=== PATIENT | female | born 1980 | race African-American/Black ===

== ENCOUNTER 2019-05-08 08:54 | Outpatient (CLI) | payer OTHER, SELFPAY | END 2019-05-08 08:55 | disposition home or self-care (01) | PROVIDERS: Visit Provider Nurse Practitioner Gerontology | DX: J45.909 Unspecified asthma, uncomplicated (principal) | CPT/HCPCS: 36415; 82785; 86003 ==

== ENCOUNTER 2019-08-03 14:13 | Outpatient (CLI) | payer OTHER, SELFPAY ==
[2019-08-03 15:18] LABS: Basophils Percent Auto 0.7 % (0.2-1.2); Eosinophils Percent Auto 0.7 % (0-4.4); Hematocrit 39.3 % (37.0-47.0); Hemoglobin 12.9 g/dL (12.0-15.0); Immature Granulocyte Absolute 0.03 K/mm3 (0.00-0.031); Immature Granulocyte Percent A 0.5 % (0-0.5); Immature Platelet Fraction Pct 10.3 % (0.9-11.2); Lymphocytes Absolute Auto 2.62 K/mm3 (0.9-3.2); Lymphocytes Percent Auto 43.2 % (18.3-44.2); Mean Corpuscular HGB Conc 32.8 g/dl (32-36); Mean Corpuscular Hemoglobin 29.7 pg (26-34); Mean Corpuscular Volume 90.6 fl (80-100); Monocytes Absolute Auto 0.6 K/mm3 (0.1-0.6); Monocytes Percent Auto 10.2 % (2.6-8.5); Neutrophils Absolute Auto 2.7 K/mm3 (1.3-6.7); Neutrophils Percent Auto 44.7 % (45.5-73.1); Platelet Count Result 200 k/mm3 (150-375); Red Blood Count 4.34 M/mm3 (4.2-5.4); Red Cell Distribution Width 12.9 % (11.5-14.5); White Blood Count 6.1 K/mm3 (4.5-10.0)
[2019-08-07 11:47] LABS: Vitamin B1 11 nmol/L (8-30)
== END 2019-08-03 14:14 | disposition home or self-care (01) ==
LOC: ANHLAB 14:20
DX: E66.01 Morbid (severe) obesity due to excess calories (principal); K90.9 Intestinal malabsorption, unspecified
CPT/HCPCS: 36415; 84425; 85025; 85055

== ENCOUNTER 2019-08-05 13:00 | Outpatient (CLI) | payer OTHER, SELFPAY ==
[2019-08-05 13:35] LABS: Alanine Aminotransferase 17 U/L (4-35); Albumin Level 4.2 g/dL (3.5-5.1); Alkaline Phosphatase 72 U/L (38-126); Aspartate Amino Transferase 21 U/L (14-36); Bilirubin,Total 0.7 mg/dL (0.2-1.3); Blood Urea Nitrogen 10 mg/dL (7-17); Calcium 8.8 mg/dL (8.4-10.2); Carbon Dioxide 26 mmol/L (22-30); Chloride 105 mmol/L (98-107); Cholesterol 146 mg/dL (0-200); Estimated Glomerular Filt Rate > 60; Glucose 86 mg/dL (65-105); HDL Direct 43 mg/dL; Magnesium 2.2 mg/dL (1.6-2.3); Phosphorus 3.4 mg/dL (2.5-4.5); Potassium 4.2 mmol/L (3.4-5.0); Sodium 137 mmol/L (137-145); Triglycerides 66 mg/dL (<150)
[2019-08-05 13:46] LABS: LDL Cholesterol Direct 79 mg/dL
[2019-08-05 14:04] LABS: Iron 120 ug/dL (37-170)
[2019-08-05 14:08] LABS: Parathyroid Intact 18.2 pg/mL (7.5-53.5)
[2019-08-05 14:13] LABS: Percent Iron Saturation 40 % (20-50)
[2019-08-05 14:39] LABS: Vitamin D 25 Hydroxy 40.7 ng/mL
[2019-08-05 14:44] LABS: Folic Acid > 20.0 ng/mL (2.76->20)
== END 2019-08-05 13:01 | disposition home or self-care (01) ==
DX: E66.01 Morbid (severe) obesity due to excess calories (principal); K90.9 Intestinal malabsorption, unspecified
CPT/HCPCS: 36415; 80053; 80061; 82306; 82607; 82728; 82746; 83540; 83550; 83735; 83970; 84100

== ENCOUNTER 2019-08-28 07:44 | Outpatient (CLI) | payer OTHER, SELFPAY ==
--- NOTE | 2019-08-28 | ECHO_ITS ---
Patient Info Name: Renee Healy Age: 39 years : 1980 Gender: Female Ht: 63 in Wt: 275 lbs BSA: 2.43 m2 BP: 132 / 86 mmHg Technical Quality: Good Exam Date: 08/28/2019 8:36 AM Exam Location: [facility] Pulmonary Patient Status: Outpatient Admit Date: 08/28/2019 Staff Ordering Physician: Hira, Merle FIERRO Aircraft Armorer: Gabriel Carlos, CHRIS, RT Attending Provider: HiraMerle APRN Exam Type: CA echo doppler color flow Study Info Indications R06.02 - Shortness of breath Complete two-dimensional, color flow and Doppler transthoracic echocardiogram is performed. Summary 1. Left ventricular chamber dimension is normal. 2. Left ventricular systolic function is normal, estimated at 60-65%. 3. The left ventricular diastolic function is normal. 4. E/e' 6 is minimally elevated. 5. Global longitudinal strain is mildly abnormal at -16.6%. 6. There is trace tricuspid valve regurgitation. Left Ventricle E/e' 6 is minimally elevated. Global longitudinal strain is mildly abnormal at -16.6%. Left ventricular chamber dimension is normal. Left ventricular systolic function is normal, estimated at 60-65%. The left ventricular diastolic function is normal. Right Ventricle Right ventricular chamber dimension is normal. Right ventricular systolic function is normal. Left Atria Left atrial chamber dimension is normal. Right Atria Right atrial chamber dimension is normal. Aortic Valve The aortic valve is trileaflet. There is no aortic valve stenosis. There is no aortic valve regurgitation. Pulmonic Valve There is no pulmonic regurgitation. Mitral Valve There is no mitral valve stenosis. There is no mitral valve regurgitation. Tricuspid Valve There is trace tricuspid valve regurgitation. RVSP is not calculated due to an inadequate TR jet. Pericardium/Pleural There is no pericardial effusion. Inferior Vena Cava Normal inferior vena cava with >50% collapse upon inspiration consistent with normal right atrial pressure, 5 mmHg. Aorta The aortic root size at the sinus of Valsalva is normal. Left Ventricular Outflow Tract Name Value Normal LVOT 2D LVOT Diameter 2.1 cm LVOT Doppler LVOT Peak Gradient 3 mmHg LVOT Mean Gradient 2 mmHg LVOT VTI 20 cm LVOT VTI/AV VTI Ratio 0.8 LVOT Stroke Volume 71 ml LVOT CO 4.4 l/min LVOT CI 2.0 l/min/m2 Mitral Valve Name Value Normal MV Doppler MV Decel [place] 274 cm/s2 MV PHT 73 ms MV Area (PHT) 3.0 cm2 4.0-5.0 MV Diastolic Function
== END 2019-08-28 07:45 | disposition home or self-care (01) ==
LOC: ANHCARD 07:47
PROVIDERS: Visit Provider Nurse Practitioner Gerontology
DX: I27.20 Pulmonary hypertension, unspecified (principal)
CPT/HCPCS: 93306

== ENCOUNTER 2021-08-16 12:27 | Outpatient (CLI) | payer OTHER, SELFPAY ==
[2021-08-16 13:20] LABS: Hematocrit 35.4 % (37.0-47.0); Hemoglobin 11.5 g/dL (12.0-15.0)
== END 2021-08-16 12:28 | disposition home or self-care (01) ==
PROVIDERS: Anesthesiology; Visit Provider Obstetrics & Gynecology Gynecology
DX: R58 Hemorrhage, not elsewhere classified (principal)
CPT/HCPCS: 36415; 85014; 85018

== ENCOUNTER 2021-08-21 00:31 | Day surgery (SDC) | payer OTHER, SELFPAY ==
[2021-08-15 14:03] VITALS: BMI 44.4
--- NOTE | 2021-08-15 14:18 | PC.NURSE ---
-Report to the Outpatient Waiting Room, entrance under the green pavilion located off [facility], at time 0700 on date 08/21/21. OR Time: 0900. - You and your visitor will be asked a series of questions to screen for COVID 19 for your protection. - Only one visitor is allowed at this time. - The patient visitor is requested to leave or wait in car when not with patient. - A mask is required within the hospital. -Patients may have clear liquids (water, carbonated beverages, clear teas, apple juice) until 3 hours prior to surgery with a maximum of 20 ounces. - No food from midnight until time of surgery. Take the following medications with a SIP of water the morning of surgery: Buspirone, Hydroxyzine HCL, Sertraline, Amitriptyline and if needed, may take Rizatriptan and also, may use inhalers if needed. Medications to discontinue per physician: Calcium citrate, Vitamin D2, and Multivitamin. Date to take last dose 3 days prior to surgery. Please no make-up, nail icelandic, hairspray, perfume, deodorant, or body powder the day of surgery. No jewelry (including any body piercings) or valuables the day of surgery, leave them at home. Please take a shower or bath the night before, or the morning of, surgery with an antibacterial soap. Wear comfortable, loose fitting clothing. - Jewelry must be removed prior to entering the operating room. Rings and piercings that are not removed may be cut off. - The hospital will not accept responsibility for valuables. - Please leave all valuables, including medications, at home the day of surgery. If you are going home after surgery, a licensed hammer driver must drive you home. - NO public transportation without another adult. - We recommend that an adult stay with you for 24 hours following discharge. - We also recommend that you do not drive, make important decision, drink alcoholic beverages, or take any drugs that were not prescribed by your health care provider for at least 24 hours after your discharge time. Follow any additional instructions given to you from your surgeon. If you or anyone in your household have experienced Covid symptoms in the past week, please notify your surgeon or the nurse liaison at the phone number below for possible testing. Telephone instructions given to patient and asked if any additional questions and then verbalized understanding. -Patient advised to call surgeon office or pre surgery nurse liaison [phone] if any additional questions.
--- NOTE | 2021-08-21 07:33 | WPDHPUPDATE1 ---
History and Physical Update Update Date/Time: 08/21/21 07:33 History and Physical has been reviewed, including an updated exam of the patient. There are NO changes in the patient's condition. Risks, benefits, and alternatives have been discussed and questions answered. Patient agrees to proceed with procedure.
--- NOTE | 2021-08-21 07:33 | PM.HPGS ---
History of Present Illness History of Present Illness Consent: Risks, benefits, and alternatives have been discussed and questions answered. Patient agrees to proceed with procedure. Chief complaint: abn uterine bleeding Narrative: Renee Healy is a 41 year old female with heavy and irregular cycles for the past 8 months. Pelvic ultrasound reveals a normal-appearing uterus. Patient is slightly anemic with a hemoglobin of 11. Recommend to proceed with D&C hysteroscopy for further evaluation. Risks of infection, bleeding, perforation, and fluid imbalance were reviewed. Patient voiced understanding and agrees to proceed. Possible pathology was also discussed. Review of Systems Review of Systems: not repeated day of surgery; patient states no changes in status PMFSH Past Medical History Medical History (Updated 08/21/21 @ 08:00 by Lorraine Saha MD) Anxiety Asthma Depression Migraine Surgical History Surgical History (Updated 08/21/21 @ 07:59 by Lorraine Saha MD) History of bilateral tubal ligation 2012 History of X3 History of reversal of tubal ligation 2016 Status post carpal tunnel release of both wrists Status post laparoscopic cholecystectomy Status post LEEP (loop electrosurgical excision procedure) of cervix 2007 Status post sleeve gastrectomy Performed in 2016 with a revision in 2019 Status post tonsillectomy Social History Social History Smoking status: Former smoker Tobacco type: e-cigarettes/vaping Smoking end date: 07/15/21 Alcohol intake: current Drinks per week: 1 Substance use: never Living arrangements: with family Spiritual care concerns: No Meds Home Medications and Allergies Home Medications Medication Instructions Recorded Confirmed Type Lactobacills gasseri-Bifidobac 1 cap PO DAILY 08/15/21 08/15/21 History bifidum,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[employer]) albuterol sulfate 90 mcg/actuation 2 puff inhalation Q4-6H PRN 08/15/21 08/15/21 History aerosol inhaler WHEEZING amitriptyline 25 mg tablet 25 mg PO DAILY 08/15/21 08/15/21 History buspirone 30 mg tablet 30 mg PO BID 08/15/21 08/15/21 History calcium citrate 150 mg capsule 150 mg PO DAILY 08/15/21 08/15/21 History cetirizine 10 mg tablet (Zyrtec) 10 mg PO DAILY 08/15/21 08/15/21 History cholestyramine (with sugar) 4 gram 1 ea PO DAILY PRN Diarrhea 08/15/21 08/15/21 History powder for susp in a packet clobetasol 0.05 % scalp solution 1 ml topical 3XW 08/15/21 08/15/21 History cyclobenzaprine 5 mg tablet 5 mg PO DAILY PRN Muscle Spasm 08/15/21 08/15/21 History diclofenac sodium 1 % topical gel 1 ea topical BID PRN MUSCLE PAIN 08/15/21 08/15/21 History dicyclomine 10 mg capsule 10 mg PO BID PRN Abdominal 08/15/21 08/15/21 History Discomfort ergocalciferol (vitamin D2) 1,250 1,250 mcg PO DAILY 08/15/21 08/15/21 History mcg (50,000 unit) capsule (Vitamin D2) fluticasone propionate 110 2 puff inhalation Q4-6H PRN 08/15/21 08/15/21 History mcg/actuation HFA aerosol inhaler Wheezing (Flovent HFA) hydrocortisone 2.5 % topical cream 1 applic topical 3XW 08/15/21 08/15/21 History hydroxychloroquine 200 mg tablet 200 mg PO BID 08/15/21 08/15/21 History hydroxyzine HCl 25 mg tablet 25 mg PO TID PRN Anxiety 08/15/21 08/15/21 History ketoconazole 2 % shampoo 1 ea topical 3XW 08/15/21 08/15/21 History linaclotide 145 mcg capsule 145 mcg PO DAILY 08/15/21 08/15/21 History (Linzess) meclizine 25 mg tablet 25 mg PO DAILY 08/15/21 08/15/21 History montelukast 10 mg tablet 10 mg PO DAILY 08/15/21 08/15/21 History (Singulair) multivitamin with minerals-folic 1 tablet PO DAILY 08/15/21 08/15/21 History acid 0.4 mg tablet pantoprazole 40 mg tablet,delayed 40 mg PO DAILY 08/15/21 08/15/21 History release phentermine 7.5 mg-topiramate ER 1 cap PO DAILY 08/15/21 08/15/21 History 46 mg capsule,ext.release 24hr mphase (Qsymia) rizatriptan
[2021-08-21] MEDS: ACETAMINOPHEN 500 MG TABLET 1000 MG PO (07:40)
--- NOTE | 2021-08-21 07:57 | WPDANESEPPF ---
Anes - Initial Pre Proc Eval Procedure: Operation Date: 08/21/21 09:00 Proposed Procedures p Hysteroscopy, Dilation and Curettage - Lorraine Saha MD Date/Time: 08/21/21 07:57 Surgeon: Lorraine Saha MD Pre Op Diagnosis: abn uterine bleeding Patient Data Age: 41 Gender: F Height: 1.6 m Weight: 113.85 kg Allergies Allergy/AdvReac Type Severity Reaction Status Date / Time iodine Allergy Severe DIFFICULTY Verified 08/21/21 07:35 BREATHING/HIVES/SWELLING morphine AdvReac Severe Itching Verified 08/21/21 07:35 adhesive tape AdvReac Intermediate REDNESS/SWE Verified 08/21/21 07:35 LLING/ITCHI NG Home Medications Medication Instructions Recorded Confirmed Type Lactobacills gasseri-Bifidobac 1 cap PO DAILY 08/15/21 08/15/21 History bifidum,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[employer]) albuterol sulfate 90 mcg/actuation 2 puff inhalation Q4-6H PRN 08/15/21 08/15/21 History aerosol inhaler WHEEZING amitriptyline 25 mg tablet 25 mg PO DAILY 08/15/21 08/15/21 History buspirone 30 mg tablet 30 mg PO BID 08/15/21 08/15/21 History calcium citrate 150 mg capsule 150 mg PO DAILY 08/15/21 08/15/21 History cetirizine 10 mg tablet (Zyrtec) 10 mg PO DAILY 08/15/21 08/15/21 History cholestyramine (with sugar) 4 gram 1 ea PO DAILY PRN Diarrhea 08/15/21 08/15/21 History powder for susp in a packet clobetasol 0.05 % scalp solution 1 ml topical 3XW 08/15/21 08/15/21 History cyclobenzaprine 5 mg tablet 5 mg PO DAILY PRN Muscle Spasm 08/15/21 08/15/21 History diclofenac sodium 1 % topical gel 1 ea topical BID PRN MUSCLE PAIN 08/15/21 08/15/21 History dicyclomine 10 mg capsule 10 mg PO BID PRN Abdominal 08/15/21 08/15/21 History Discomfort ergocalciferol (vitamin D2) 1,250 1,250 mcg PO DAILY 08/15/21 08/15/21 History mcg (50,000 unit) capsule (Vitamin D2) fluticasone propionate 110 2 puff inhalation Q4-6H PRN 08/15/21 08/15/21 History mcg/actuation HFA aerosol inhaler Wheezing (Flovent HFA) hydrocortisone 2.5 % topical cream 1 applic topical 3XW 08/15/21 08/15/21 History hydroxychloroquine 200 mg tablet 200 mg PO BID 08/15/21 08/15/21 History hydroxyzine HCl 25 mg tablet 25 mg PO TID PRN Anxiety 08/15/21 08/15/21 History ketoconazole 2 % shampoo 1 ea topical 3XW 08/15/21 08/15/21 History linaclotide 145 mcg capsule 145 mcg PO DAILY 08/15/21 08/15/21 History (Linzess) meclizine 25 mg tablet 25 mg PO DAILY 08/15/21 08/15/21 History montelukast 10 mg tablet 10 mg PO DAILY 08/15/21 08/15/21 History (Singulair) multivitamin with minerals-folic 1 tablet PO DAILY 08/15/21 08/15/21 History acid 0.4 mg tablet pantoprazole 40 mg tablet,delayed 40 mg PO DAILY 08/15/21 08/15/21 History release phentermine 7.5 mg-topiramate ER 1 cap PO DAILY 08/15/21 08/15/21 History 46 mg capsule,ext.release 24hr mphase (Qsymia) rizatriptan 5 mg tablet 10 mg PO DAILY PRN MIGRAINE 08/15/21 08/15/21 History sertraline 100 mg tablet 200 mg PO BID 08/15/21 08/15/21 History Patient hx anesthesia problems: none Family hx anesthesia problems: none Results Review: All pre-operative results and documents have been reviewed as part of the pre-operative evaluation. [facility] Past Medical History Medical History Anxiety Asthma Depression Migraine Surgical History Surgical History History of X3 Social History Social History Smoking status: Former smoker Tobacco type: e-cigarettes/vaping Smoking end date: 07/15/21 Alcohol intake: current Drinks per week: 1 Substance use: never Living arrangements: with family Spiritual care concerns: No Anes - Eval Final PreProcedure Day of Procedure 08/21/21 07:57 Patient weight: morbidly obese Heart: regular rate and rhythm Cheri
[2021-08-21 08:05] VITALS: BP 113/66; PULSE 68; RESP 16; TEMP 37.1; O2SAT 100
[2021-08-21] MEDS: LACTATED RINGERS 1,000 ML 30 ML IV CONT (08:18)
[2021-08-21] MEDS: LIDOCAINE HCL 1% PF 30 ML VIAL INFILTRATE (09:08)
--- NOTE | 2021-08-21 09:17 | W.PM.PROC2 ---
Procedure Note - Detailed Date of Procedure 08/21/21 Pre-op Diagnosis Menorrhagia Post-op Diagnosis Same Procedure Performed D&C hysteroscopy Surgeon Lorraine Saha MD Anesthesia MAC and Local Findings Uterus sounds to 12cm and appears grossly normal Description of Procedure The patient is taken to operating room and placed under anesthesia in the dorsal lithotomy position. She was prepped and draped in the usual sterile fashion. [place] speculum was placed in the vagina and the cervix was grasped on the anterior lip with a tenaculum. The cervix is injected in each quadrant with 1% lidocaine. The external os is stenotic and but able to be entered with a small dilator. The cervix is serially dilated to an 8 [place]. The uterus is sounded to 12cm. The diagnostic hysteroscope was placed with the above-stated findings. The hysteroscope was removed and the medium sharp curette used to curette the endometrium until a good uterine cry was noted in all areas. All instruments were then removed. The patient was awakened from anesthesia and taken to recovery in stable condition. Sponge, needle, and instrument counts are correct per the OR staff. Estimated Blood Loss 5 Drains No Packing No Pathology Yes (Endometrial curettings) Complications No immediate complications Condition Stable Disposition PACU
[2021-08-21 09:18] VITALS: BP 136/74; PULSE 76; RESP 12; O2SAT 100
[2021-08-21 09:45] VITALS: BP 124/74; PULSE 68; RESP 20
[2021-08-21] MEDS: oxyCODONE HCL (*CRX) 5 MG TAB IR PO (09:51)
[2021-08-21 10:15] VITALS: BP 107/67; PULSE 67; RESP 20
== END 2021-08-21 10:20 | disposition home or self-care (01) ==
PROVIDERS: Visit Provider Obstetrics & Gynecology Gynecology
PROC: 0U5B8ZZ Destruction of Endometrium, Via Natural or Artificial Opening Endoscopic (ICD-10-PCS; CPT 58563; principal; 2021-08-21 09:00)
DX: N92.0 Excessive and frequent menstruation with regular cycle (principal); J45.909 Unspecified asthma, uncomplicated; F32.A Depression, unspecified; F41.9 Anxiety disorder, unspecified; Z98.51 Tubal ligation status; Z98.84 Bariatric surgery status; Z87.891 Personal history of nicotine dependence; E66.01 Morbid (severe) obesity due to excess calories; Z68.41 Body mass index [BMI] 40.0-44.9, adult
CPT/HCPCS: 58558; 88305; A9270; J1885; J2250; J2704; J3010; J7120

== ENCOUNTER 2023-10-21 00:53 | Day surgery (SDC) | payer BC, SELFPAY ==
[2023-10-17 09:05] VITALS: BMI 40.8
--- NOTE | 2023-10-17 09:13 | PC.NURSE ---
Report to the Outpatient Waiting Room, entrance under the green pavilion located off [facility], at time _1015_ on date _[id number]_. Planned Procedure Time: _1215_. Time changes happen often and if your time is changed the preop area will call you the afternoon before. - You and your visitor will be asked to self-screen and do not enter if you have any COVID symptoms. - A mask is optional within the hospital at this time. Patients may have clear liquids (water, carbonated beverages, clear teas, apple juice) until 3 hours prior to surgery with a maximum of 20 ounces. - No food from midnight until time of surgery Take the following medications with a SIP of water the morning of surgery: ____Venlafaxine and Verapamil DO NOT STOP ANY OF YOUR OTHER PRESCRIPTION MEDICATIONS PRIOR TO SURGERY ?EXCEPT THE FOLLOWING Medications to discontinue per physician Vitamins and probiotic Date to take last dame [id number] Please no make-up, nail chinese, hairspray, perfume, deodorant, or body powder the day of surgery. No jewelry (including any body piercings) or valuables the day of surgery, leave them at home. Please take a shower or bath the night before, or the morning of, surgery with an antibacterial soap. Wear comfortable, loose fitting clothing. - Jewelry must be removed prior to entering the operating room. Rings and piercings that are not removed may be cut off. - The hospital will not accept responsibility for valuables. - Please leave all valuables, including medications, at home the day of surgery. If you are going home after surgery, a licensed wheelchair van driver must drive you home. - NO public transportation without another adult if you receive anesthesia. - We recommend that an adult stay with you for 24 hours following discharge. - We also recommend that you do not drive, make important decision, drink alcoholic beverages, or take any drugs that were not prescribed by your health care provider for at least 24 hours after your discharge time. Follow any additional instructions given to you from your surgeon. If you or anyone in your household have experienced Covid symptoms in the past week, please notify your surgeon or the nurse liaison at the phone number below for possible testing. Telephone instructions given to __April___and asked if any additional questions and then verbalized understanding. Patient advised to call surgeon office or pre surgery nurse liaison [phone] if any additional questions.
[2023-10-21] VITALS (8 sets, daily range): BP systolic 124–146; BP diastolic 75–95; PULSE 64–90; RESP 12–18; TEMP 36.7; O2SAT 97–100
--- NOTE | 2023-10-21 07:13 | WPDHPUPDATE1 ---
History and Physical Update Update Date/Time: 10/21/23 07:13 History and Physical has been reviewed, including an updated exam of the patient. There are NO changes in the patient's condition. Risks, benefits, and alternatives have been discussed and questions answered. Patient agrees to proceed with procedure.
--- NOTE | 2023-10-21 07:14 | PM.HPGS ---
History of Present Illness History of Present Illness Consent: Risks, benefits, and alternatives have been discussed and questions answered. Patient agrees to proceed with procedure. Chief complaint: Menorrhagia Narrative: Renee Roe is a 43 year old female with irregular and heavy cycles. Pelvic ultrasound is normal. It was recommended to undergo D&C hysteroscopy for further evaluation. The risks of infection, bleeding, perforation, and possible pathology are reviewed. Patient voices understanding and agrees to proceed. Review of Systems Review of Systems: not repeated day of surgery; patient states no changes in status PMFSH Past Medical History Medical History (Updated 08/21/21 @ 08:22 by Alia Champagne) Anxiety Asthma Depression Migraine Surgical History Surgical History (Updated 10/21/23 @ 07:16 by Lorraine Saha MD) History of bilateral tubal ligation 2012 History of X3 History of hysteroscopy 2021 benign History of reversal of tubal ligation 2016 Status post carpal tunnel release of both wrists Status post laparoscopic cholecystectomy Status post LEEP (loop electrosurgical excision procedure) of cervix 2007 Status post sleeve gastrectomy Performed in 2016 with a revision in 2019 Status post tonsillectomy Social History Social History (System 08/21/21 @ 08:22 by Alia Champagne) Smoking status: Former smoker Tobacco type: e-cigarettes/vaping Smoking end date: 07/15/21 Alcohol intake: current Drinks per week: 1 Substance use: never Living arrangements: with family Spiritual care concerns: No Meds Home Medications and Allergies Home Medications Medication Instructions Recorded Confirmed Type Lactobacills gasseri-Bifidobac 1 cap PO DAILY 08/15/21 10/17/23 History bifidum,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[employer]) albuterol sulfate 90 mcg/actuation 2 puff inhalation Q4-6H PRN 08/15/21 10/17/23 History aerosol inhaler WHEEZING calcium citrate 150 mg capsule 150 mg PO DAILY 08/15/21 10/17/23 History cetirizine 10 mg tablet (Zyrtec) 10 mg PO DAILY 08/15/21 10/17/23 History clobetasol 0.05 % scalp solution 1 ml topical 3XW 08/15/21 10/17/23 History cyclobenzaprine 5 mg tablet 5 mg PO DAILY PRN Muscle Spasm 08/15/21 10/17/23 History ergocalciferol (vitamin D2) 1,250 1,250 mcg PO DAILY 08/15/21 10/17/23 History mcg (50,000 unit) capsule (Vitamin D2) fluticasone propionate 110 2 puff inhalation Q4-6H PRN 08/15/21 10/17/23 History mcg/actuation HFA aerosol inhaler Wheezing (Flovent HFA) hydroxychloroquine 200 mg tablet 200 mg PO BID 08/15/21 10/17/23 History ketoconazole 2 % shampoo 1 ea topical 3XW 08/15/21 10/17/23 History montelukast 10 mg tablet 10 mg PO DAILY 08/15/21 10/17/23 History (Singulair) multivitamin with minerals-folic 1 tablet PO DAILY 08/15/21 10/17/23 History acid 0.4 mg tablet pantoprazole 40 mg tablet,delayed 40 mg PO DAILY 08/15/21 10/17/23 History release rizatriptan 5 mg tablet 10 mg PO DAILY PRN MIGRAINE 08/15/21 10/17/23 History amitriptyline 50 mg tablet 50 mg PO HS 10/17/23 10/17/23 History dicyclomine 20 mg tablet 20 mg PO TID 10/17/23 10/17/23 History doxycycline hyclate 100 mg tablet 100 mg PO BID 10/17/23 10/17/23 History famotidine 40 mg tablet 40 mg PO HS 10/17/23 10/17/23 History ferrous sulfate 324 mg (65 mg 324 mg PO DAILY 10/17/23 10/17/23 History iron) tablet,delayed release hyoscyamine sulfate 0.125 mg tablet 0.125 mg PO TID 10/17/23 10/17/23 History pregabalin 150 mg capsule 150 mg PO HS 10/17/23 10/17/23 History venlafaxine 75 mg capsule,extended 75 mg PO DAILY 10/17/23 10/17/23 History release 24 hr verapamil 40 mg tablet 40 mg PO BID 10/17/23 10/17/23 History Allergies Allergy/AdvReac Type Severity Reaction Status Date / Time codeine Allergy Severe Itching Verified 10/17/23 08:56 iodine Allergy Severe DIFFICULTY Verified 10/17/23 08:56 BREATHIN
--- NOTE | 2023-10-21 10:55 | WPDANESEPPF ---
Anes - Initial Pre Proc Eval Procedure: Operation Date: 10/21/23 12:15 Proposed Procedures p Hysteroscopy Dilation and Curettage - Lorraine Saha MD Date/Time: 10/21/23 10:55 Surgeon: Lorraine Saha MD Pre Op Diagnosis: Menorrhagia Patient Data Age: 43 Gender: F Height: 1.6 m Weight: 104.5 kg Allergies Allergy/AdvReac Type Severity Reaction Status Date / Time codeine Allergy Severe Itching Verified 10/17/23 08:56 iodine Allergy Severe DIFFICULTY Verified 10/17/23 08:56 BREATHING/HIVES/SWELLING morphine AdvReac Severe Itching Verified 10/17/23 08:56 adhesive tape AdvReac Intermediate REDNESS/SWE Verified 10/17/23 08:56 LLING/ITCHI NG Home Medications Medication Instructions Recorded Confirmed Type Lactobacills gasseri-Bifidobac 1 cap PO DAILY 08/15/21 10/17/23 History bifidum,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Jobr) albuterol sulfate 90 mcg/actuation 2 puff inhalation Q4-6H PRN 08/15/21 10/17/23 History aerosol inhaler WHEEZING calcium citrate 150 mg capsule 150 mg PO DAILY 08/15/21 10/17/23 History cetirizine 10 mg tablet (Zyrtec) 10 mg PO DAILY 08/15/21 10/17/23 History clobetasol 0.05 % scalp solution 1 ml topical 3XW 08/15/21 10/17/23 History cyclobenzaprine 5 mg tablet 5 mg PO DAILY PRN Muscle Spasm 08/15/21 10/17/23 History ergocalciferol (vitamin D2) 1,250 1,250 mcg PO DAILY 08/15/21 10/17/23 History mcg (50,000 unit) capsule (Vitamin D2) fluticasone propionate 110 2 puff inhalation Q4-6H PRN 08/15/21 10/17/23 History mcg/actuation HFA aerosol inhaler Wheezing (Flovent HFA) hydroxychloroquine 200 mg tablet 200 mg PO BID 08/15/21 10/17/23 History ketoconazole 2 % shampoo 1 ea topical 3XW 08/15/21 10/17/23 History montelukast 10 mg tablet 10 mg PO DAILY 08/15/21 10/17/23 History (Singulair) multivitamin with minerals-folic 1 tablet PO DAILY 08/15/21 10/17/23 History acid 0.4 mg tablet pantoprazole 40 mg tablet,delayed 40 mg PO DAILY 08/15/21 10/17/23 History release rizatriptan 5 mg tablet 10 mg PO DAILY PRN MIGRAINE 08/15/21 10/17/23 History amitriptyline 50 mg tablet 50 mg PO HS 10/17/23 10/17/23 History dicyclomine 20 mg tablet 20 mg PO TID 10/17/23 10/17/23 History doxycycline hyclate 100 mg tablet 100 mg PO BID 10/17/23 10/17/23 History famotidine 40 mg tablet 40 mg PO HS 10/17/23 10/17/23 History ferrous sulfate 324 mg (65 mg 324 mg PO DAILY 10/17/23 10/17/23 History iron) tablet,delayed release hyoscyamine sulfate 0.125 mg tablet 0.125 mg PO TID 10/17/23 10/17/23 History pregabalin 150 mg capsule 150 mg PO HS 10/17/23 10/17/23 History venlafaxine 75 mg capsule,extended 75 mg PO DAILY 10/17/23 10/17/23 History release 24 hr verapamil 40 mg tablet 40 mg PO BID 10/17/23 10/17/23 History Patient hx anesthesia problems: none Family hx anesthesia problems: none Results Review: All pre-operative results and documents have been reviewed as part of the pre-operative evaluation. [facility] Past Medical History Medical History (Updated 08/21/21 @ 08:22 by Alia Champagne) Anxiety Asthma Depression Migraine Surgical History Surgical History (Updated 10/21/23 @ 07:16 by Lorraine Saha MD) History of bilateral tubal ligation 2012 History of X3 History of hysteroscopy 2021 benign History of reversal of tubal ligation 2016 Status post carpal tunnel release of both wrists Status post laparoscopic cholecystectomy Status post LEEP (loop electrosurgical excision procedure) of cervix 2007 Status post sleeve gastrectomy Performed in 2016 with a revision in 2019 Status post tonsillectomy Social History Social History (System 08/21/21 @ 08:22 by Alia Champagne) Smoking status: Former smoker Tobacco type: e-cigarettes/vaping Smoking end date: 07/15/21 Alcohol intake: current Drinks per week: 1 Substance use: never Living arrangements: with family Spiritual care concern
[2023-10-21] MEDS: LACTATED RINGERS 1,000 ML 30 ML IV CONT ×2 (11:00→13:12)
[2023-10-21] MEDS: ONDANSETRON INJ 4 MG/2 ML VIAL IV PUSH (11:15)
[2023-10-21 11:42] LABS: Hematocrit 36.3 % (37.0-47.0); Hemoglobin 11.2 g/dL (12.0-15.0)
[2023-10-21] MEDS: ACETAMINOPHEN 500 MG TABLET 1000 MG PO (11:50)
--- NOTE | 2023-10-21 12:12 | W.PM.PROC2 ---
Procedure Note - Detailed Date of Procedure 10/21/23 Pre-op Diagnosis Menorrhagia Post-op Diagnosis Same Procedure Performed D&C hysteroscopy Surgeon Lorraine Saha MD Anesthesia MAC Findings very stenotic internal cervical os grossly normal-appearing endometrium Description of Procedure The patient is taken to operating room and placed under anesthesia in the dorsal lithotomy position. She was prepped and draped in the usual sterile fashion. [place] speculum was placed in the vagina and the cervix grasped on the anterior lip with a tenaculum. The uterus is attempted to be sounded and external cervical stenosis is encountered. The small Hegar dilator is able to enter the external cervical os but not the internal cervical os. Os Finders are used. The are unable to pass the internal cervical stenosis. The small Hegar dilator was again utilized and is able to pass the internal cervical stenosis with significant pressure. The os Finders were then again used and able to enter the cavity. The uterus is sounded to 9cm and the diagnostic hysteroscope placed through hydrodissection. The cavity is very narrow the with no abnormalities. The hysteroscope was removed and the sharp OO curette used to curette the endometrium until a good uterine cry was noted all areas. Minimal material was obtained consistent with the visual appearance. All instruments are removed. Sponge, needle, and instrument counts are correct per the OR staff. The patient was awakened from anesthesia and taken to recovery in stable condition. Estimated Blood Loss 5 Drains No Packing No Pathology Yes ( Endometrial curettings) Complications Other complications ( very stenotic internal cervix) Condition Stable Disposition PACU
[2023-10-21 12:29] LABS: BEDSIDEPREGUCG Negative
[2023-10-21] MEDS: diphenhydrAMINE HCl INJ 50 MG/ML VIAL 12.5 MG IV PUSH ×2 (12:51→13:09)
[2023-10-21] MEDS: fentaNYL CITRATE INJ (*CRX) 100 MCG/2 ML VIAL 25 MCG IV PUSH ×6 (13:09→14:16)
== END 2023-10-21 14:41 | disposition home or self-care (01) ==
PROVIDERS: Anesthesiology; Visit Provider Obstetrics & Gynecology Gynecology
PROC: 0U5B8ZZ Destruction of Endometrium, Via Natural or Artificial Opening Endoscopic (ICD-10-PCS; CPT 58563; principal; 2023-10-21 12:15)
DX: N92.0 Excessive and frequent menstruation with regular cycle (principal); F41.9 Anxiety disorder, unspecified; J45.909 Unspecified asthma, uncomplicated; F32.A Depression, unspecified; E66.01 Morbid (severe) obesity due to excess calories; Z68.34 Body mass index [BMI] 34.0-34.9, adult; Z79.51 Long term (current) use of inhaled steroids; Z98.890 Other specified postprocedural states; Z98.51 Tubal ligation status; Z98.84 Bariatric surgery status; Z90.49 Acquired absence of other specified parts of digestive tract; Z87.891 Personal history of nicotine dependence
CPT/HCPCS: 58558; 36415; 85014; 85018; 88305; A9270; J1100; J1200; J2250; J2405; J2704; J3010; J7120